=== PATIENT | female | born 1985 ===

== ENCOUNTER 2025-08-07 08:40 | Outpatient (RCR) | payer BC, SELFPAY | END 2025-08-14 10:53 | disposition home or self-care (01) | LOC: RPT 08:40 | PROVIDERS: ATTENDING PHYSICIAN Urology; FAMILY PHYSICIAN Internal Medicine | DX: M62.89 Other specified disorders of muscle (principal); Z73.6 Limitation of activities due to disability; R32 Unspecified urinary incontinence; R10.20 Pelvic and perineal pain unspecified side | CPT/HCPCS: 97161; 97530 ==